=== PATIENT | male | born 1955 | race Caucasian/White ===

== ENCOUNTER 2023-11-29 15:42 | Emergency (ER) | payer MEDICARE, OTHER, SELFPAY ==
[2023-11-29 15:43] VITALS: BP 152/89
--- NOTE | 2023-11-29 17:13 | ED.GENMED ---
History of Present Illness
<Danielle Treadwell PA-C - Last Filed: 11/29/23 18:00>
General
Chief Complaint: Musculo-Skeletal Complaint
Source: patient
Exam Limitations: none
Time Seen by Provider: 11/29/23 16:54
Nursing documentation reviewed up to this point in time: agreed with
Travel History
Have you had any contact with someone who has COVID-19?: No
Do you have any symptoms of coronavirus? Fever > 100 degrees, chills, cough, shortness of breath, sore throat, loss of taste or smell, muscle aches, or headache?: No
History of Present Illness
History of Present Illness:
Patient is a 68-year-old male presenting for evaluation of left hip injury. He states that he was moving a large log earlier today in the yard when he twisted and heard a loud pop in his left hip. He endorses an initial very sharp pain followed by
now a more dull ache in the left hip made worse with movement. He is able to bear weight but is having a difficult time with full range of motion. He denies any numbness/tingling in the left lower extremity. He denies any weakness of left lower
extremity.
He denies sustaining any other injuries. No loss of consciousness or head strike.
Past History
<Danielle Treadwell PA-C - Last Filed: 11/29/23 18:00>
Past History
ED Past Medical History: GERD, HTN, Hypercholesterolemia and Other (anemia)
Social History
Tobacco: Non-smoker
Personal:
Living: with family
Employment: Employed
Phy Exam
<Danielle Treadwell PA-C - Last Filed: 11/29/23 18:00>
Physical Exam
Physical Exam:
General: In no apparent distress, non-toxic
Vitals: Mildly hypertensive, otherwise vital signs stable, afebrile
HEENT: Atraumatic, normocephalic; protecting airway
Neck: appears supple, no cervical spine or midline spinal tenderness
CV: No evidence of cyanosis
Resp: No evidence of respiratory distress
Abd: Non-distended
Extremities: Some pain in left lateral thigh noted with straight leg raise and abduction of left; no obvious bruising, swelling, deformity of left hip; no bony tenderness of left hip; left lower extremity neurovascularly intact
Neuro: alert and oriented x 3; grossly intact
Psych: Normal affect
Skin: Intact, no rashes or bruising
Course
<Danielle Treadwell PA-C - Last Filed: 11/29/23 18:00>
Orders/Labs/Results
Orders:
Orders
11/29/23 15:46
CR Hip - LT w/wo Pel 2-3 Vw* Urgent
Comment:
Reason For Exam: injury
Include a pelvis x-ray?: No
Vital Signs
Initial and Last Documented VS:
Initial Vital Signs
Temp Pulse Resp BP Pulse Ox
98.3 F 93 20 152/89 99
11/29/23 15:43 11/29/23 15:43 11/29/23 15:43 11/29/23 15:43 11/29/23 15:43
Last Documented Vital Signs
Temp Pulse Resp BP Pulse Ox
98.3 F 93 20 152/89 99
11/29/23 15:43 11/29/23 15:43 11/29/23 15:43 11/29/23 15:43 11/29/23 15:43
<Cj Fisher DO - Last Filed: 11/29/23 17:59>
Orders/Labs/Results
Orders:
Orders
11/29/23 15:46
CR Hip - LT w/wo Pel 2-3 Vw* Urgent
Comment:
Reason For Exam: injury
Include a pelvis x-ray?: No
Vital Signs
Initial and Last Documented VS:
Initial Vital Signs
Temp Pulse Resp BP Pulse Ox
98.3 F 93 20 152/89 99
11/29/23 15:43 11/29/23 15:43 11/29/23 15:43 11/29/23 15:43 11/29/23 15:43
Last Documented Vital Signs
Temp Pulse Resp BP Pulse Ox
98.3 F 93 20 152/89 99
11/29/23 15:43 11/29/23 15:43 11/29/23 15:43 11/29/23 15:43 11/29/23 15:43
<Danielle Treadwell PA-C - Last Filed: 11/29/23 18:00>
MDM/Problems Addressed
Differential Diagnosis Includes:
Hip sprain, quadriceps strain, hip fracture, hip dislocation,
MDM/Problems Addressed:
Patient is a 60-year-old male presenting for evaluation of left hip injury sustained earlier today while lifting a large log. He felt a pop and has since had some pain in his left hip made worse with flexion of hip. He has no pain with
weightbearing. Patient denies sustaining other any other injuries in fall. Patient is hypertensive, otherwise vital signs stable in emergency department. Physical exam as document above. He is in no apparent distress, very mild pain with left
lateral thigh with flexion and abduction of left hip. There is no bony tenderness, effusion, swelling or obvious deformity of left hip. Left lower extremity neurovascular intact. Patient walking and standing without any difficulty on my
examination. He is able to hop on left foot without pain. Patient declines any analgesia at this point. Will check x-ray of left hip.
Wet read of x-ray shows no obvious fracture or dislocation. Suspect likely sprain or muscular strain of lateral thigh. Stable for discharge with rest, NSAIDs, ice, Ortho follow-up as needed. Patient comfortable this plan. All questions answered.
Chronic conditions affecting care:
HTN
Acute Exacerbation and/or Progression of Chronic Illness:
Acutely hypertensive
<Danielle Treadwell PA-C - Last Filed: 11/29/23 18:00>
*Radiology
Radiology exam reviewed: preliminary read by ED provider
*Pulse Oximetry
Patient hypoxic: no
*EKG
Interpreted by ED Provider?: NA
*Legal Biller Interpretation
Rate: Legal Biller- N/A
*Critical Care Note
Total Time (30-74mins, 75-104mins- exclusive of procedures): Not Applicable
ED Attending Note
<Danielle Treadwell PA-C - Last Filed: 11/29/23 18:00>
-
Portions of this chart may have been created with voice recognition software.� Occasional wrong word or��sound alike� substitutions may have occurred due to the inherent limitations of voice recognition software.
<Cj Fisher DO - Last Filed: 11/29/23 17:59>
ED Attending Note
Patient seen and examined by attending physician: Yes
I performed the substantive portion of visit, reviewed & personally made and approve the management plan that is documented in note by myself or MYRIAM.: Yes
ED Attending Note:
I agree with Rafia's note
Patient suffered pain in his left lateral thigh when lifting a heavy log. Patient heard a pop. He is able to weight-bear and ambulate.
Patient standing and walking at the time my evaluation.
Range of motion essentially intact
Imaging shows no acute fracture
Conservative management for suspected partial muscle tear.
Discharge Plan
Departure
Patient Disposition: Home (Routine Discharge)
Date of Disposition: 11/29/23
Time of Disposition: 17:56
Patient with high blood pressure during this ER visit?: Yes
Condition: Good
Covid-19: Not Applicable
Discharge Problem:
Injury of left hip
Instructions: Muscle Strain (DC), Sprain (DC), BLOOD PRESSURE
Prescriptions:
No Action
cephalexin 500 MG capsule
500 mg PO BID Qty: 20 0RF
Referrals:
Lalo Kent MD [Family Provider] -
Talon Angeles MD [Active] - As needed
Activity Restrictions/Additional Instructions:
- Return to the emergency department with any severe pain, numbness/tingling in left lower extremity, severe back pain, high fevers, worsening in current symptoms, or any other concerns
-You should use Tylenol/NSAIDs as needed for discomfort, ice and rest as needed
-Follow-up with primary care/orthopedics if symptoms persist/worsen
Interventions
Interventions:
*Risk Screen - Suicide Last Done: 11/29/23 15:43
*General Assessment Last Done: 11/29/23 15:43
*Neglect/Abuse Screening Last Done: 11/29/23 15:43
ED-Musculoskeletal Assessment Last Done: 11/29/23 16:51
== END 2023-11-29 18:06 | disposition home or self-care (01) ==
LOC: EMR 15:42
PROVIDERS: EMERGENCY PHYSICIAN Emergency Medicine; FAMILY PHYSICIAN Internal Medicine Geriatric Medicine
DX: S79.912A Unspecified injury of left hip, initial encounter (principal); X50.1XXA Overexertion from prolonged static or awkward postures, initial encounter; I10 Essential (primary) hypertension
CPT/HCPCS: 99283; 73502

== ENCOUNTER 2024-07-26 12:46 | Emergency (ER) | payer MEDICARE, OTHER, SELFPAY ==
[2024-07-26 12:48] VITALS: BP 170/103
--- NOTE | 2024-07-26 13:10 | ED.GENMED ---
History of Present Illness
General
Chief Complaint: Musculo-Skeletal Complaint
Time Seen by Provider: 07/26/24 12:54
History of Present Illness
History of Present Illness:
Patient is a 69-year-old man with history of hypertension hyperlipidemia, right-sided meniscal tear with meniscectomy presenting to the emergency department with left knee pain. Patient states that he was on the side of a truck cleaning the
windshield when he propped his left leg up to stand and he twisted he heard a pop with significant pain. He did not fall or hit his head. He does hear a click every time he walks. He did not take any pain medications prior to arrival. No
numbness tingling. No weakness. He is not on a blood thinner. He has seen orthopedic surgery for his right knee.
Past History
Past History
ED Past Medical History: GERD, HTN, Hypercholesterolemia and Other (anemia)
Social History
Tobacco: Non-smoker
Personal:
Living: with family
Employment: Employed
Phy Exam
Physical Exam
Physical Exam:
GENERAL: in no acute distress
HEENT: normocephalic, extraocular movements intact
NECK: normal inspection
RESPIRATORY: no respiratory distress
CARDIOVASCULAR: regular rate and rhythm
EXTREMITIES: Left lower extremity with mild swelling to the superior aspect of the knee, 5 out of 5 strength at the hip and knee, some pain with full flexion, no point tenderness, negative anterior drawer sign, positive Trevor, 2+ DP pulses
NEUROLOGIC: awake and alert, moves all extremities
SKIN: warm
Course
Orders/Labs/Results
Orders:
Orders
07/26/24 12:47
CR Knee - Left 4 Or More View* Urgent
Comment:
Reason For Exam: pain
07/26/24 13:24
Knee Immobilizer Left-Treatmen ONCE
Vital Signs
Initial and Last Documented VS:
Initial Vital Signs
Temp Pulse Resp BP Pulse Ox
98.0 F 80 16 170/103 98
07/26/24 12:48 07/26/24 12:48 07/26/24 12:48 07/26/24 12:48 07/26/24 12:48
Last Documented Vital Signs
Temp Pulse Resp BP Pulse Ox
98.0 F 80 16 170/103 98
07/26/24 12:48 07/26/24 12:48 07/26/24 12:48 07/26/24 12:48 07/26/24 12:48
MDM/Problems Addressed
Differential Diagnosis Includes:
69-year-old male presenting to the emergency department with left-sided knee pain after he heard a pop when he was in a twisted position. Vitals are unremarkable and exam does show some joint swelling with a positive Trevor test. Likely meniscal
tear. Less likely to be a fracture. Considered vascular disruption however less likely given 2+ DP pulses and warm extremities. X-ray obtained prior to evaluation which per my interpretation shows no acute fracture. Will give knee immobilizer
and crutches. Patient will follow-up with his orthopedic surgeon. I did offer pain control however patient declines at this time.
*Critical Care Note
Total Time (30-74mins, 75-104mins- exclusive of procedures): Not Applicable
ED Attending Note
-
Portions of this chart may have been created with voice recognition software.� Occasional wrong word or��sound alike� substitutions may have occurred due to the inherent limitations of voice recognition software.
Discharge Plan
Departure
Patient Disposition: Home (Routine Discharge)
Date of Disposition: 07/26/24
Time of Disposition: 13:24
Patient with high blood pressure during this ER visit?: Yes
Discharge Problem:
Knee meniscus pain
Instructions: Meniscal Tear (DC)
Prescriptions:
No Action
cephalexin 500 MG capsule
500 mg PO BID Qty: 20 0RF
Referrals:
Nando Bach MD [Non-Admitting Privileges] -
Activity Restrictions/Additional Instructions:
You were seen in the Emergency Department today for knee pain. You likely have a meniscal tear. Please follow-up with your orthopedic surgeon. Please use the knee immobilizer as well as crutches. If you notice any numbness tingling changes in
skin color or worsening weakness please come back to the emergency department immediately.
We would like for you to follow up with your primary care physician for further evaluation. If you experience fever, worsening of your symptoms, or develop any other new or concerning symptoms, please return to the Emergency Department immediately.
Please see the attached sheet for additional information.
Interventions
Interventions:
*Risk Screen - Suicide Last Done: 07/26/24 12:48
*General Assessment Last Done: 07/26/24 12:48
*Neglect/Abuse Screening Last Done: 07/26/24 12:48
*ED COVID-19 Vaccine History Last Done: 07/26/24 12:48
ED-Musculoskeletal Assessment Last Done: 07/26/24 13:16
Discharge Date and Time
Print Language: MALTESE
[2024-07-26 13:46] VITALS: BP 159/90
== END 2024-07-26 13:47 | disposition home or self-care (01) ==
LOC: EMR 12:46
PROVIDERS: EMERGENCY PHYSICIAN Student in an Organized Health Care Education/Training Program; FAMILY PHYSICIAN Internal Medicine Geriatric Medicine
DX: S89.81XA Other specified injuries of right lower leg, initial encounter (principal); X50.1XXA Overexertion from prolonged static or awkward postures, initial encounter; E78.00 Pure hypercholesterolemia, unspecified; I10 Essential (primary) hypertension; K21.9 Gastro-esophageal reflux disease without esophagitis
CPT/HCPCS: 29505; 99283; 73564

== ENCOUNTER → 2025-07-21 13:08 | Outpatient (REF) | payer MEDICARE, OTHER, SELFPAY | LOC: REG 13:08 | PROVIDERS: ATTENDING PHYSICIAN Orthopaedic Surgery Hand Surgery; FAMILY PHYSICIAN Internal Medicine Geriatric Medicine | DX: M79.5 Residual foreign body in soft tissue (principal) | CPT/HCPCS: 70030 ==